=== PATIENT | female | born 1990 | race Caucasian/White ===

== ENCOUNTER 2017-11-26 11:32 | Inpatient (IN) | payer OTHER ==
[2017-11-26] MEDS ORDERED: AMPICILLIN 2 GM/NS (PMX) 100 ML (15:19)
[2017-11-26] MEDS ORDERED: CARBOPROST 250 MCG INJ IM ×2 (15:30→17:30)
[2017-11-26] MEDS ORDERED: IBUPROFEN 600 MG TAB PO (15:30)
[2017-11-26] MEDS ORDERED: OXYCODONE/ACETAMINOPHEN (5/325) TAB PO (15:30)
[2017-11-26] MEDS ORDERED: OXYTOCIN 30 UNITS/LR 500 ML IV ×2 (15:30→17:30)
[2017-11-26] MEDS ORDERED: MISOPROSTOL 200 MCG TAB PR ×2 (15:30→17:30)
[2017-11-26] MEDS ORDERED: LIDOCAINE 1% (MPF) 30 ML INJ INJ (15:30)
[2017-11-26] MEDS ORDERED: BUTORPHANOL 2 MG INJ IV (15:30)
[2017-11-26] MEDS ORDERED: METHYLERGONOVINE 0.2 MG INJ IM ×2 (15:30→17:30)
[2017-11-26] MEDS: LACTATED RINGER'S 1,000 ML IV* ×2 (15:31→22:32)
[2017-11-26] MEDS: AMPICILLIN 2 GM/NS (PMX) 100 ML IV (15:31)
[2017-11-26 15:32] LABS: ADD MAN DIFF? NO
[2017-11-26 15:33] LABS: BASOPHILS % 0.3 % (0.0-2.0); EOSINOPHILS % 0.3 % (0.0-7.0); HEMATOCRIT 36.2 % (37.0-47.0); HEMOGLOBIN 11.7 g/dl (12.0-16.0); LYMPHOCYTES # 1.4 10^3/ul (0.8-2.9); LYMPHOCYTES % 10.2 % (15.0-51.0); MEAN CORPUSCULAR HEMOGLOBIN 29.2 pg (29.0-33.0); MEAN CORPUSCULAR HGB CONC 32.3 g/dl (32.0-37.0); MEAN CORPUSCULAR VOLUME 90.3 fl (82.0-101.0); MEAN PLATELET VOLUME 11.4 fl (7.4-10.4); MONOCYTE # 0.7 10^3/ul (0.3-0.9); MONOCYTES % 4.7 % (0.0-11.0); NEUTROPHIL # 11.5 10^3/ul (1.6-7.5); NEUTROPHILS % 82.8 % (39.0-77.0); PLATELET COUNT 235 10^3/UL (140-415); RED BLOOD COUNT 4.01 10^6/ul (4.20-5.40); RED CELL DISTRIBUTION WIDTH 13.9 % (11.5-14.5)
[2017-11-26 15:33] LABS: WHITE BLOOD COUNT 13.8 10^3/ul (4.8-10.8)
[2017-11-26 15:53] LABS: INR 0.92; PARTIAL THROMBOPLASTIN TIME 27.9 Sec (25.0-35.0); PROTIME 12.4 Sec (11.9-14.9)
[2017-11-26 16:22] LABS: HEPATITIS B SURFACE ANTIGEN NEGATIVE (NEGATIVE)
[2017-11-26] MEDS: MINERAL OIL LIGHT 10 ML VIAL TOP (16:30)
[2017-11-26 16:45] LABS: RAPID PLASMA REAGIN NONREACTIVE (NR)
[2017-11-26] MEDS: OXYTOCIN 30 UNITS/LR 500 ML IV ×3 (17:18→18:07)
[2017-11-26] MEDS ORDERED: SENNA/DOCUSATE NA (8.6MG/50MG) TAB PO (17:30)
[2017-11-26] MEDS ORDERED: NACL 0.9% 3 ML SYG IV (17:30)
[2017-11-26] MEDS ORDERED: HYDROCODONE/APAP (5/325) TAB PO ×2 (17:30)
[2017-11-26] MEDS ORDERED: DIPHENHYDRAMINE 25 MG CAP PO (17:30)
[2017-11-26] MEDS: IBUPROFEN 600 MG TAB PO ×2 (18:00→23:22)
[2017-11-26] MEDS ORDERED: AMPICILLIN 1 GM/NS (PMX) 50 ML IV (18:00)
[2017-11-26] MEDS: LANOLIN 7 GM TUBE TOP (21:24)
[2017-11-26] MEDS: WITCH HAZEL/GLYCERIN PAD PR (21:24)
[2017-11-26] MEDS: SENNA/DOCUSATE NA (8.6MG/50MG) TAB PO (21:24)
[2017-11-27] MEDS: LACTATED RINGER'S 1,000 ML IV* ×3 (01:18→17:18)
[2017-11-27] MEDS: IBUPROFEN 600 MG TAB PO ×3 (05:50→17:39)
[2017-11-27] MEDS: SENNA/DOCUSATE NA (8.6MG/50MG) TAB PO ×2 (08:39→22:29)
[2017-11-27 09:23] LABS: ADD MAN DIFF? NO
[2017-11-27 09:26] LABS: BASOPHILS % 0.2 % (0.0-2.0); EOSINOPHILS # 0.1 10^3/ul (0.0-0.5); EOSINOPHILS % 0.5 % (0.0-7.0); HEMATOCRIT 32.3 % (37.0-47.0); HEMOGLOBIN 10.5 g/dl (12.0-16.0); LYMPHOCYTES # 2.4 10^3/ul (0.8-2.9); LYMPHOCYTES % 14.8 % (15.0-51.0); MEAN CORPUSCULAR HEMOGLOBIN 29.3 pg (29.0-33.0); MEAN CORPUSCULAR HGB CONC 32.5 g/dl (32.0-37.0); MEAN CORPUSCULAR VOLUME 90.2 fl (82.0-101.0); MEAN PLATELET VOLUME 11.2 fl (7.4-10.4); MONOCYTE # 0.8 10^3/ul (0.3-0.9); MONOCYTES % 4.8 % (0.0-11.0); NEUTROPHIL # 12.5 10^3/ul (1.6-7.5); NEUTROPHILS % 78.1 % (39.0-77.0); PLATELET COUNT 220 10^3/UL (140-415); RED BLOOD COUNT 3.58 10^6/ul (4.20-5.40); RED CELL DISTRIBUTION WIDTH 14.2 % (11.5-14.5)
[2017-11-27] MEDS: BENZOCAINE 20% 56 ML SPRAY TOP (15:15)
[2017-11-28] MEDS: IBUPROFEN 600 MG TAB PO ×3 (00:07→12:29)
[2017-11-28] MEDS: BENZOCAINE 20% 56 ML SPRAY TOP (05:50)
[2017-11-28] MEDS: WITCH HAZEL/GLYCERIN PAD PR (05:50)
[2017-11-28] MEDS: SENNA/DOCUSATE NA (8.6MG/50MG) TAB PO (08:08)
[2017-11-28] MEDS: DIPHTH/TET/ACEL PERTUSS (ADULT) 0.5 ML VIAL IM* (12:32)
== END 2017-11-28 14:01 | disposition home or self-care (01) | DRG 775 ==
LOC: OBT 11:32 → L-D 11:32 → OBT 13:40 → L-D 13:40 → PP1 20:30
PROVIDERS: Obstetrics & Gynecology
PROC: 10E0XZZ Delivery of Products of Conception, External Approach (ICD-10-PCS; principal; 2017-11-26)
PROC: 10907ZC Drainage of Amniotic Fluid, Therapeutic from Products of Conception, Via Natural or Artificial Opening (ICD-10-PCS; 2017-11-26)
PROC: 0UQMXZZ Repair Vulva, External Approach (ICD-10-PCS; 2017-11-26)
PROC: 3E0234Z Introduction of Serum, Toxoid and Vaccine into Muscle, Percutaneous Approach (ICD-10-PCS; 2017-11-28)
DX: O41.03X0 Oligohydramnios, third trimester, not applicable or unspecified (principal); O71.82 Other specified trauma to perineum and vulva; Z3A.40 40 weeks gestation of pregnancy; Z37.0 Single live birth; Z23 Encounter for immunization
CPT/HCPCS: 76815; 76818; 85025; 85610; 85730; 86592; 86850; 86900; 86901; 87340; 90715

== ENCOUNTER 2018-05-21 13:45 | Emergency (ER) | payer OTHER ==
[2018-05-21] MEDS: ACETAMINOPHEN 325 MG TAB PO (16:17)
== END 2018-05-21 17:08 | disposition home or self-care (01) ==
LOC: FTE 13:45
DX: J02.9 Acute pharyngitis, unspecified (principal); R51 Headache
CPT/HCPCS: 99283; Z7502

== ENCOUNTER 2018-09-03 08:54 | Emergency (ER) | payer OTHER ==
[2018-09-03] MEDS: ONDANSETRON (ODT) 4 MG TAB ODT (10:18)
[2018-09-03] MEDS: KETOROLAC 60 MG INJ IM (10:24)
[2018-09-03 10:38] LABS: ADD UMIC YES; UR ASCORBIC ACID NEGATIVE (NEGATIVE); UR BACTERIA FEW /HPF (NONE SEEN); UR BILIRUBIN (Dip) NEGATIVE (NEGATIVE); UR BLOOD (Dip) 1+ mg/dL (NEGATIVE); UR CLARITY CLEAR (CLEAR); UR COLOR STRAW (YELLOW); UR GLUCOSE (Dip) NEGATIVE (NEGATIVE); UR KETONES (Dip) NEGATIVE (NEGATIVE); UR LEUKOCYTE ESTERASE (Dip) NEGATIVE Leu/ul (NEGATIVE); UR NITRITE (Dip) NEGATIVE (NEGATIVE); UR RBC 2 /HPF (0-5); UR SPECIFIC GRAVITY (Dip) 1.004 (1.003-1.030); UR SQUAMOUS EPITHELIAL CELL FEW /HPF (FEW); UR TOTAL PROTEIN (Dip) NEGATIVE (NEGATIVE); UR UROBILINOGEN (Dip) NEGATIVE (NEGATIVE); UR WBC 0 /HPF (0-5)
== END 2018-09-03 11:23 | disposition home or self-care (01) ==
LOC: FTE 08:54
DX: J03.80 Acute tonsillitis due to other specified organisms (principal); B96.89 Other specified bacterial agents as the cause of diseases classified elsewhere
CPT/HCPCS: 81001; 81025; 96372; 99284-25